=== PATIENT | female | born 1945 | race Two or more races ===

== ENCOUNTER → 2024-07-03 | Outpatient (CLI) | payer OTHER, MEDICAID, SELFPAY ==
[2024-07-03 12:03] LABS: Basophils # (Auto) 0.1 Thou/mm3 (0.0-0.2); Basophils % (Auto) 1 % (0-2.5); Eosinophils # (Auto) 0.3 Thou/mm3 (0.0-0.5); Eosinophils % (Auto) 4 % (0-10); Hematocrit 35.9 % (36.0-46.0); Hemoglobin 10.9 g/dL (12.0-16.0); Immature Granulocytes % (Auto) 0 % (0-0); Immature Granulocytes Auto 0.02 Thou/mm3 (0.00-0.00); Lymphocytes # (Auto) 1.3 Thou/mm3 (1.0-4.8); Lymphocytes % (Auto) 18 % (10-50); Mean Corpuscular HGB Conc 30.4 g/dl (31.0-37.0); Mean Corpuscular Hemoglobin 25.2 pg (25.0-35.0); Mean Corpuscular Volume 83 fL (80-100); Monocytes # (Auto) 0.5 Thou/mm3 (0.0-0.8); Monocytes % (Auto) 7 % (0-12); Neutrophils # (Auto) 5.3 Thou/mm3 (1.8-7.7); Neutrophils % (Auto) 70 % (37-80); Nucleated Red Blood Cell % 0 /100 WBC (0); Platelet Count 429 Thou/mm3 (140-440); RDW Standard Deviation 46.6 fL (36.4-46.3); Red Blood Count 4.32 Miln/mm3 (4.00-5.20); White Blood Count 7.6 Thou/mm3 (3.6-11.0)
[2024-07-03 12:17] LABS: Glucose Estimated Average 134 mg/dL (80-131); Hemoglobin A1C 6.3 % Hgb (4.8-6.0)
[2024-07-03 12:30] LABS: Alanine Aminotransferase 16 U/L (10-49); Albumin, Serum 5.2 gm/dL (3.4-4.8); Albumin/Globulin Ratio 2.4 (1.2-2.2); Alkaline Phosphatase 101 U/L (46-116); Anion Gap 10 (7-16); Aspartate Amino Transferase 17 U/L (0-34); BUN/Creatinine Ratio 17 Ratio (12-20); Bilirubin,Total 0.4 mg/dL (0.3-1.2); Blood Urea Nitrogen 25 mg/dL (9-23); Calcium 10.1 mg/dL (8.3-10.6); Calcium (Corrected) 10.1 mg/dL (8.5-10.1); Carbon Dioxide 27.3 mMol/L (20.0-31.0); Chloride 100 mMol/L (98-107); Cholesterol 140 mg/dL (132-200); Creatinine (Component) 1.5 mg/dL (0.6-1.3); Globulin 2.2 gm/dL (2.3-3.5); Glucose 135 mg/dL (74-106); HDL Cholesterol 46 mg/dL (40-60); LDL Cholesterol,Calculated 66 mg/dL (0-130); Osmolality,Calculated 280 (275-295); Potassium 4.3 mMol/L (3.4-5.1); Sodium 137 mMol/L (136-145); Thyroid Stimulating Hormone 2.23 uIU/mL (0.55-4.78); Total Protein 7.4 gm/dL (5.7-8.2); Triglycerides 142 mg/dL (30-150); eGFR 35 See Note
[2024-07-03 13:47] LABS: Creatinine MALB Rnd Ur 229 mg/dL (30-125); Microalbumin Creat Ratio 42 mg/gCrea (<30); Microalbumin, Random Urine 96 mg/L (0-300)
== END | disposition home or self-care (01) ==
LOC: COPL 11:35
PROVIDERS: PCP Family Medicine; Referring Provider Family Medicine; Visit Provider Family Medicine
DX: E11.65 Type 2 diabetes mellitus with hyperglycemia (principal)
CPT/HCPCS: 36415; 80053; 80061; 82043; 82570; 83036; 84443; 85025

== ENCOUNTER 2024-08-24 16:50 | Emergency (ER) | payer MEDICARE, MEDICAID, SELFPAY ==
[2024-08-24] VITALS (7 sets, daily range): BP systolic 117–228; BP diastolic 55–82; PULSE 62–73; RESP 18; TEMP 36.7–36.9; O2SAT 97–98; BMI 27.2
--- NOTE | 2024-08-24 17:32 | XR_ITS ---
Examination: PA chest single view TECHNIQUE: Upright PA chest single view Exam date and time: August 24, 2024 1740 hours INDICATIONS: Chest pain today. FINDINGS: Normal heart size. CABG. No pneumonia or pulmonary edema The osseous structures are intact IMPRESSION: No pneumonia or pulmonary edema
--- NOTE | 2024-08-24 17:32 | EKG_ITS ---
[facility] Test Date: 2024-08-24 Pat Name: MEJIA PERALTA Department: Room: - Gender: Female [employer]: : 1945 Requested By: Shirlene Mclain Order Number: [id number] Reading MD: Shirlene Mclain Measurements Intervals [place] Rate: 62 P: 6 SD: 167 QRS: 61 QRSD: 83 T: 29 QT: 431 QTc: 439 Interpretive Statements SINUS RHYTHM NONSPECIFIC T-WAVE ABNORMALITY Compared to ECG 03/09/2019 16:55:13 T-wave abnormality now present /store/S0/[id number]
--- NOTE | 2024-08-24 17:35 | EDNOTE_ITS ---
ED General RME/HPI General Chief complaint: Chest Pain Stated complaint: HIGH BLOOD PRESSURE; PCP SENT Time Seen by Provider: 08/24/24 17:25 Arrival date/time: 08/24/24 16:50 RME / HPI RME / HPI narrative: 79-year-old female patient with significant history of hypertension, CAD, CABG was sent to us by PCP for blood pressure above 200 systolic. Patient is complaining of ringing of ears, denies any headache denies any chest pain. Patient is taking multiple blood pressure medication with good compliance. Patient is ambulatory Related Data Home Medications ?Medication ?Instructions ?Recorded ?Confirmed simvastatin 20 mg tablet (Zocor) 20 mg PO HS #0 tabs 03/11/17 02/10/24 hydralazine 25 mg tablet 25 mg PO BID 11/11/17 02/10/24 levothyroxine 50 mcg tablet 50 mcg PO QDAY 11/11/17 02/10/24 (Synthroid) albuterol sulfate 90 mcg/actuation 2 puff inhalation QID PRN 09/06/18 02/10/24 aerosol inhaler (Ventolin HFA) Shortness Of Breath clopidogrel 75 mg tablet 75 mg PO QDAY 09/06/18 02/10/24 magnesium 250 mg tablet 250 mg PO BID 09/06/18 02/10/24 carvedilol 6.25 mg tablet 6.25 mg PO BID 03/09/19 02/10/24 clonidine HCl 0.1 mg tablet 0.1 mg PO BID 03/09/19 02/10/24 hydrochlorothiazide 25 mg tablet 25 mg PO QDAY 03/09/19 02/10/24 metformin 500 mg tablet 500 mg PO BID 02/09/24 02/10/24 pantoprazole 40 mg tablet,delayed 40 mg PO QDAY 02/09/24 02/10/24 release Allergies Allergy/AdvReac Type Severity Reaction Status Date / Time propoxyphene Allergy Mild DIZZY Verified 08/24/24 16:52 shellfish derived Allergy Unknown Verified 08/24/24 16:52 Review of Systems Review of Systems Narrative Review of Systems: Review of system reviewed and within normal limits except mentioned in HPI ED Exam Narrative Physical exam: VITAL SIGNS: Reviewed. GENERAL APPEARANCE: Alert and interactive, follows commands, no acute distress, HEAD AND FACE: Non-traumatic. ENT: PERRL, pink conjunctivitis, eyelid no trauma, Mucous membrane moist. NECK: Supple, nontender, no nuchal rigidity. CHEST: No tenderness, no crepitus, no paradoxical movement, no retractions. LUNGS: Clear, well ventilated, symmetric, no rales, no wheezing, no ronchi, no stridor, good breath sounds bilaterally. HEART: Regular rate, regular rhythm, no murmur, no gallops. ABDOMEN: Soft, positive bowel sounds, nondistended, no guarding, nontender, no rebound, no masses, RECTAL: Deferred. GENITAL: Deferred. NEUROLOGICAL: Gross motor function intact sensory function intact, Appropriate for age. MUSCULOSKELETAL: low back nontender, full range of motion. EXTREMITIES: Nontender, full range of motion. SKIN: Color pink, dry, no rash, no lacerations, no abrasions, no contusions. LYMPHATICS: Deferred. Course Quality Measures none Orders Category Date Time Status EKG (ED ONLY) *Do not use* NOW Care 08/24/24 17:33 Completed EKG (ED Only) Stat Exams 08/24/24 17:32 Draft XR chest 1V Stat Exams 08/24/24 17:32 Completed B-Type Natriuretic Peptide Stat Lab 08/24/24 17:41 Completed CBC Stat Lab 08/24/24 17:41 Completed Comprehensive Metabolic Panel Stat Lab 08/24/24 17:41 Completed Partial Thromboplastin Time Stat Lab 08/24/24 17:41 Completed Troponin I Stat Lab 08/24/24 17:41 Completed Urinalysis, C/S if Indicated Stat Lab 08/24/24 18:19 Completed NIFEdipine [Procardia] Med 08/24/24 19:27 Discontinued 20 mg PO X1 ONE hydrALAZINE HCL [Apresoline] Med 08/24/24 17:33 Discontinued 50 mg PO X1 ONE Vital Signs Vital signs: Vital Signs Temperature 98.5 F 08/24/24 17:12 Pulse Rate 63 08/24/24 17:12 Respiratory Rate 18 08/24/24 17:12 Blood Pressure 225/82 H 08/24/24 17:12 Pulse Oximetry (%) 98 08/24/24 17:12 Oxygen Delivery Method Room Air 08/24/24 17:12 [facility] Patient data External records reviewed:: None Clinical information provided by:: patient Social determinants that could affect healthcare access:: none Patient has the following chronic illnesses:: Hypertension, diabetes mellitus How is presenting disease/condition affected by chronic disease/condition?: e xacerbated by Evaluation data The following diagnostics were reviewed and interpreted by me:: lab results, radiology exam(s) and EKG tracing(s) Lab and/or radiology exams considered but not ordered:: None Interpretation Summary: EKG as interpreted by me showed normal sinus rhythm, ventricular rate of 62 bpm, no ST segment elevation depression noted. I personally reviewed and interpreted the x-ray of this patient. There is no acute abnormalities found, no infiltrates no pneumothorax no hemothorax normal chest x-ray. Review of other structures was without significant abnormal findings also. I additionally reviewed the radiologist report and agree with the interpretation. Patient's cardiac workup all came back unremarkable. The rest of the labs normal. Medications Medications considered but not ordered:: None Medication administrations:: Medication Administration History Discontinued Medications Hydralazine HCl (Hydralazine Hcl 25 Mg Tablet) 50 mg PO X1 ONE Stop: 08/24/24 17:34 Last Admin: 08/24/24 18:17 Dose: 50 mg Documented By: BOLIVAR Nifedipine (Nifedipine 10 Mg Capsule) 20 mg PO X1 ONE Stop: 08/24/24 19:28 Last Admin: 08/24/24 20:03 Dose: 20 mg Documented By: CVL Stable for discharge Consultations Consultation(s) initiated? (list below): No Diagnosis Differential Diagnosis ED Complaint MDM: Hypertensive urgency, hypertensive emergency, poor medication compliance Most likely diagnosis given after review of the tests above:: Hypertensive urgency Admission Indicated Admission indicated?: not indicated Explain why admission is indicated or not indicated:: Stable Admission Request Was there a request for admission?: No Disposition Plan Disposition Plan: Discharge Discharge Attestation Discharge Attestation: The patient and all family members were given an opportunity to ask questions and understood the discharge instructions. Discharge instructions specifically effects, indications for sooner follow up or return to the emergency department, and the expected course of current diagnosis. Patient condition: Stable Medical Decision Making MDM Narrative MDM Narrative: 79-year-old female patient with significant history of hypertension, CAD, CABG was sent to us by PCP for blood pressure above 200 systolic. Patient is complaining of ringing of ears, denies any headache denies any chest pain. Patient is taking multiple blood pressure medication with good compliance. Patient is ambulatory Patient's cardiac workup all came back normal. Patient was given initially hydralazine, for blood pressure about 200, after 1 hour recheck still above 200. I added Procardia, and prior to discharge patient blood pressure back to normal 130/57. Patient is denying any complaints. Patient is ambulatory. Was advised to follow-up with PCP in the morning. Patient appears nontoxic and hemodynamically stable. Patient discharged home and instructed to follow-up with primary care provider in 24 to 48 hours. Instructed to return to the emergency department immediately if worsening of symptoms Differential Diagnosis Differential Diagnosis: Hypertensive urgency, hypertensive emergency, poor medication compliance Lab Data 08/24/24 17:41 08/24/24 17:41 Labs: Lab Results 08/24/24 08/24/24 Range/Units 17:41 18:19 WBC 8.9 (3.6-11.0) Thou/mm3 RBC 4.15 (4.00-5.20) Miln/mm3 Hgb 10.2 L (12.0-16.0) g/dL Hct 33.4 L (36.0-46.0) % MCV 81 (80-100) fL MCH 24.6 L (25.0-35.0) pg MCHC 30.5 L (31.0-37.0) g/dl RDW Std Deviation 46.8 H (36.4-46.3) fL Plt Count 386 (140-440) Thou/mm3 Neut % (Auto) 69 (37-80) % Lymph % (Auto) 18 (10-50) % [place] % (Auto) 8 (0-12) % Eos % (Auto) 4 (0-10) % Baso % (Auto) 1 (0-2.5) % Neut # (Auto) 6.1 (1.8-7.7) Thou/mm3 Lymph # (Auto) 1.6 (1.0-4.8) Thou/mm3 [place] # (Auto) 0.7 (0.0-0.8) Thou/mm3 Eos # (Auto) 0.4 (0.0-0.5) Thou/mm3 Baso # (Auto) 0.1 (0.0-0.2) Thou/mm3 Immature Gran # (Auto) 0.03 H (0.00-0.00) Thou/mm3 Absolute Nucleated RBC 0.00 (0.00-0.00) Thou/mm3 Immature Gran % 0 (0-0) % Nucleated RBC % 0 (0) /100 WBC APTT 26.4 (22.0-36.0) Seconds Sodium 136 (136-145) mMol/L Potassium 4.0 (3.4-5.1) mMol/L Chloride 100 (98-107) mMol/L Carbon Dioxide 24.7 (20.0-31.0) mMol/L Anion Gap 11 (7-16) BUN 23 (9-23) mg/dL Creatinine 1.4 H (0.6-1.3) mg/dL Estim Creat Clear Calc 29.4 L (>60) mL/min eGFR 38 L (60 - ) See Note BUN/Creatinine Ratio 16 (12-20) Ratio Glucose 125 H (74-106) mg/dL Calculated Osmolality 276 (275-295) Calcium 10.4 (8.3-10.6) mg/dL Corrected Calcium 10.4 H (8.5-10.1) mg/dL Total Bilirubin 0.4 (0.3-1.2) mg/dL AST 19 (0-34) U/L ALT 15 (10-49) U/L Alkaline Phosphatase 101 (46-116) U/L Troponin I < 0.020 (0.0-0.045) ng/mL B-Natriuretic Peptide 44 (0-100) pg/mL Total Protein 8.2 (5.7-8.2) gm/dL Albumin 5.3 H (3.4-4.8) gm/dL Globulin 2.9 (2.3-3.5) gm/dL Albumin/Globulin Ratio 1.8 (1.2-2.2) Ur Collection Type Clean Catch Urine Color Colorless A (Lt Yel-Yel) Urine Clarity Clear (Clear/Hazy) Urine pH 6.5 (5.0-7.0) Ur Specific [place] 1.009 (1.001-1.035) Urine Protein Trace (Neg - Trace) Urine Glucose (UA) 3+ A (Negative) Urine Ketones Negative (Negative) Urine Blood Negative (Negative) Urine Nitrite Negative (Negative) Urine Bilirubin Negative (Negative) Urine Urobilinogen (Auto) Negative (0.0-1.0) mg/dL Ur Leukocyte Esterase Negative (Negative) Urine RBC 1 (0-3) /hpf Urine WBC < 1 (0-5) /hpf Ur Squamous Epith Cells 2 (0-5) /hpf Urine Bacteria None (None) Ur Culture Indicated? Not Indicated Discharge Plan Plan Patient Disposition: HOME (Self Care) Disposition Comment: stable Prescriptions/Referrals Prescriptions/Med Rec: No Action simvastatin [Zocor] 20 MG tablet 20 mg PO HS Qty: 0 clopidogrel 75 mg Tablet 75 mg PO QDAY magnesium 250 mg Tablet 250 mg PO BID albuterol sulfate [Ventolin HFA] 90 mcg/actuation Hfa Aerosol Inhaler 2 puff INHALATION QID PRN (Reason: Shortness Of Breath) clonidine HCl 0.1 mg Tablet 0.1 mg PO BID carvedilol 6.25 mg Tablet 6.25 mg PO BID hydrochlorothiazide 25 mg Tablet 25 mg PO QDAY hydralazine 25 mg Tablet 25 mg PO BID levothyroxine [Synthroid] 50 mcg Tablet 50 mcg PO QDAY metformin 500 mg tablet 500 mg PO BID Patient Comments: TAKE 1 TABLET BY MOUTH TWICE DAILY WITH MORNING AND EVENING MEALS pantoprazole 40 mg tablet,delayed release (DR/EC) 40 mg PO QDAY Patient Comments: TAKE 1 TABLET BY MOUTH DAILY Referrals: Vielka Wright MD [Primary Care Provider] - In 1 week Problem List Clinical Impression: Hypertensive urgency Patient/Caregiver Discharge Instructions Discharge Activity: activity as tolerated Education Materials: ED Hypertension, Established Additional Instructions: Thank you for the opportunity for serving you today. You are stable for discharged . You are advised to: Follow-up with your PCP in the morning Return to ED for worsening of symptoms Increase oral fluids Continue taking your blood pressure medication starting tomorrow morning Print Language: Uzbek Stand Alone Forms: Zoila Award Info., Patient Portal Info Letter PA/EDGE BLACKER Supervising Physician PA/EDGE BLACKER Supervising Physician: MD Korin
[2024-08-24 18:00] LABS: Basophils # (Auto) 0.1 Thou/mm3 (0.0-0.2); Basophils % (Auto) 1 % (0-2.5); Eosinophils # (Auto) 0.4 Thou/mm3 (0.0-0.5); Eosinophils % (Auto) 4 % (0-10); Hematocrit 33.4 % (36.0-46.0); Hemoglobin 10.2 g/dL (12.0-16.0); Immature Granulocytes % (Auto) 0 % (0-0); Immature Granulocytes Auto 0.03 Thou/mm3 (0.00-0.00); Lymphocytes # (Auto) 1.6 Thou/mm3 (1.0-4.8); Lymphocytes % (Auto) 18 % (10-50); Mean Corpuscular HGB Conc 30.5 g/dl (31.0-37.0); Mean Corpuscular Hemoglobin 24.6 pg (25.0-35.0); Mean Corpuscular Volume 81 fL (80-100); Monocytes # (Auto) 0.7 Thou/mm3 (0.0-0.8); Monocytes % (Auto) 8 % (0-12); Neutrophils # (Auto) 6.1 Thou/mm3 (1.8-7.7); Neutrophils % (Auto) 69 % (37-80); Nucleated Red Blood Cell % 0 /100 WBC (0); Platelet Count 386 Thou/mm3 (140-440); RDW Standard Deviation 46.8 fL (36.4-46.3); Red Blood Count 4.15 Miln/mm3 (4.00-5.20); White Blood Count 8.9 Thou/mm3 (3.6-11.0)
[2024-08-24] MEDS: hydrALAZINE HCL 25 MG TABLET 50 MG PO (18:17)
[2024-08-24 18:18] LABS: Partial Thromboplastin Time 26.4 Seconds (22.0-36.0)
[2024-08-24 18:22] LABS: B-Type Natriuretic Peptide 44 pg/mL (0-100)
[2024-08-24 18:24] LABS: Alanine Aminotransferase 15 U/L (10-49); Albumin, Serum 5.3 gm/dL (3.4-4.8); Albumin/Globulin Ratio 1.8 (1.2-2.2); Alkaline Phosphatase 101 U/L (46-116); Anion Gap 11 (7-16); Aspartate Amino Transferase 19 U/L (0-34); BUN/Creatinine Ratio 16 Ratio (12-20); Bilirubin,Total 0.4 mg/dL (0.3-1.2); Blood Urea Nitrogen 23 mg/dL (9-23); Calcium 10.4 mg/dL (8.3-10.6); Calcium (Corrected) 10.4 mg/dL (8.5-10.1); Carbon Dioxide 24.7 mMol/L (20.0-31.0); Chloride 100 mMol/L (98-107); Creatinine (Component) 1.4 mg/dL (0.6-1.3); Estimated Creatinine Clearance 29.4 mL/min (>60); Globulin 2.9 gm/dL (2.3-3.5); Glucose 125 mg/dL (74-106); Osmolality,Calculated 276 (275-295); Sodium 136 mMol/L (136-145); Total Protein 8.2 gm/dL (5.7-8.2); Troponin I < 0.020 ng/mL (0.0-0.045); eGFR 38 See Note
[2024-08-24 18:32] LABS: Collection Type, Urine Clean Catch
[2024-08-24 18:50] LABS: Bilirubin,Urine Negative (Negative); Blood,Urine Negative (Negative); Clarity,Urine Clear (Clear/Hazy); Color,Urine Colorless (Lt Yel-Yel); Culture Indicated,Urine Not Indicated; Glucose, Urine 3+ (Negative); Ketones,Urine Negative (Negative); Leukocyte Esterase,Urine Negative (Negative); Nitrite,Urine Negative (Negative); PH,Urine 6.5 (5.0-7.0); Protein,Urine Trace (Neg - Trace); RBC,Urine 1 /hpf (0-3); Specific Gravity,Urine 1.009 (1.001-1.035); Squamous Epithelial Cell,Urine 2 /hpf (0-5); Urobilinogen,Urine Negative mg/dL (0.0-1.0); WBC,Urine < 1 /hpf (0-5)
[2024-08-24] MEDS: NIFEdipine 10 MG CAPSULE 20 MG PO (20:03)
== END 2024-08-24 21:12 | disposition home or self-care (01) ==
PROVIDERS: Nurse Practitioner Family; Emergency Provider Emergency Medicine; PCP Internal Medicine
DX: I16.0 Hypertensive urgency (principal); R94.31 Abnormal electrocardiogram [ECG] [EKG]; I10 Essential (primary) hypertension; I25.10 Atherosclerotic heart disease of native coronary artery without angina pectoris; Z95.1 Presence of aortocoronary bypass graft
CPT/HCPCS: 36415; 71045; 80053; 81001; 83880; 84484; 85025; 85730; 93005; 99283; A9270

== ENCOUNTER → 2025-01-22 | Outpatient (CLI) | payer MEDICARE, MEDICAID, SELFPAY ==
--- NOTE | 2025-01-22 16:40 | XR_ITS ---
Examination: Abdomen AP single view Technique: AP portable supine abdomen, single view Exam date and time: January 22, 2025 1643 hours INDICATIONS: Flank pain months, history kidney stones FINDINGS: 5 mm calculus overlying the left kidney Calcification in the right pelvis measuring 7 mm which appears to be medial to the normal course of the right ureter but clinical correlation advised IMPRESSION: 5 mm left renal calculus
== END | disposition home or self-care (01) ==
PROVIDERS: PCP Internal Medicine; Referring Provider Surgery; Visit Provider Surgery
DX: N20.0 Calculus of kidney (principal)
CPT/HCPCS: 74018

== ENCOUNTER 2025-05-22 17:26 | Observation (INO) | payer MEDICARE, SELFPAY ==
--- NOTE | 2025-05-17 10:56 | EKG_ITS ---
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
[2025-05-17 11:11] VITALS: BMI 27.3
[2025-05-17 11:51] LABS: Collection Type, Urine Clean Catch
[2025-05-17 12:09] LABS: Basophils # (Auto) 0.1 Thou/mm3 (0.0-0.2); Basophils % (Auto) 1 % (0-2.5); Eosinophils # (Auto) 0.2 Thou/mm3 (0.0-0.5); Eosinophils % (Auto) 3 % (0-10); Hematocrit 35.3 % (36.0-46.0); Hemoglobin 10.7 g/dL (12.0-16.0); Immature Granulocytes Auto 0.01 Thou/mm3 (0.00-0.00); Lymphocytes # (Auto) 2.2 Thou/mm3 (1.0-4.8); Lymphocytes % (Auto) 28 % (10-50); Mean Corpuscular HGB Conc 30.3 g/dl (31.0-37.0); Mean Corpuscular Hemoglobin 24.8 pg (25.0-35.0); Mean Corpuscular Volume 82 fL (80-100); Monocytes # (Auto) 0.5 Thou/mm3 (0.0-0.8); Monocytes % (Auto) 6 % (0-12); Neutrophils # (Auto) 4.7 Thou/mm3 (1.8-7.7); Neutrophils % (Auto) 62 % (37-80); Nucleated Red Blood Cell # 0.00 Thou/mm3 (0.00-0.00); Nucleated Red Blood Cell % 0 /100 WBC (0); Platelet Count 431 Thou/mm3 (140-440); RDW Standard Deviation 47.6 fL (36.4-46.3); Red Blood Count 4.32 Miln/mm3 (4.00-5.20); White Blood Count 7.7 Thou/mm3 (3.6-11.0)
[2025-05-17 12:20] LABS: Alanine Aminotransferase 15 U/L (10-49); Albumin, Serum 4.6 gm/dL (3.4-4.8); Albumin/Globulin Ratio 1.7 (1.2-2.2); Alkaline Phosphatase 116 U/L (46-116); Anion Gap 11 (7-16); Aspartate Amino Transferase 19 U/L (0-34); BUN/Creatinine Ratio 13 Ratio (12-20); Bilirubin,Total 0.4 mg/dL (0.3-1.2); Blood Urea Nitrogen 14 mg/dL (9-23); Calcium 9.5 mg/dL (8.3-10.6); Calcium (Corrected) 9.5 mg/dL (8.5-10.1); Carbon Dioxide 28.1 mMol/L (20.0-31.0); Chloride 100 mMol/L (98-107); Creatinine (Component) 1.1 mg/dL (0.6-1.3); Estimated Creatinine Clearance 38.2 mL/min (>60); Globulin 2.7 gm/dL (2.3-3.5); Glucose 155 mg/dL (74-106); Osmolality,Calculated 281 (275-295); Potassium 3.9 mMol/L (3.4-5.1); Sodium 139 mMol/L (136-145); Total Protein 7.3 gm/dL (5.7-8.2); eGFR 51 See Note
[2025-05-17 12:22] LABS: Bilirubin,Urine Negative (Negative); Blood,Urine Negative (Negative); Clarity,Urine Clear (Clear/Hazy); Color,Urine Lt-Yellow (Lt Yel-Yel); Glucose, Urine 4+ (Negative); Ketones,Urine Negative (Negative); Leukocyte Esterase,Urine Negative (Negative); Nitrite,Urine Negative (Negative); PH,Urine 6.5 (5.0-7.0); Protein,Urine Negative (Neg - Trace); RBC,Urine 1 /hpf (0-3); Specific Gravity,Urine 1.019 (1.001-1.035); Squamous Epithelial Cell,Urine 2 /hpf (0-5); Urobilinogen,Urine Negative mg/dL (0.0-1.0); WBC,Urine < 1 /hpf (0-5)
--- NOTE | 2025-05-17 14:48 | ESHP_ITS ---
RE: MEJIA PERALTA : 1945 DATE OF ADMISSION: 05/17/2025 HISTORY OF PRESENT ILLNESS: Patient is a 79-year-old female with history of gross urinary stress incontinence. She leaks urine when she coughs, laughs, sneeze. She has a history of urinary calculi. PAST MEDICAL HISTORY: She has history of diabetes mellitus and history of hypertension. She has 2 kids. PAST SURGICAL HISTORY: Coronary artery bypass graft. ALLERGIES: SHE IS ALLERGIC TO SHELLFISH. MEDICATIONS: 1. Jardiance. 2. Clonidine. 3. Lipitor. 4. Allopurinol. 5. Thyroid medication. 6. Plavix. 7. Hydralazine. 8. Norvasc. 9. Lisinopril. PHYSICAL EXAMINATION: HEENT: Normal. Neck: Supple. Lungs: Clear. Cardiovascular: Heart sounds are normal. Abdomen: Soft without any organomegaly. No guarding. No rigidity. Extremities: Normal. Pelvic: A grade 2 urethrocele. Patient had cystoscopy which revealed low residual urine, normal capacity bladder, no intravesical stones or tumors. Patient had gross urinary stress incontinence with positive Emnauel's test. There are no uninhibited bladder contractions when bladder was filled. PLAN: Patient was given treatment options. She has decided to have surgery. She is now scheduled to have bladder neck suspension, cystoscopy, urethrolysis with Lynx vaginal sling procedure. Planned procedure, risks and complications have been discussed with the patient. Patient has understood them and agreed to proceed. Patient is supposed to stop her Plavix 1 week prior to the surgery. DT: 14:23:17 TT: 14:46:00 Ref: [id number] - TID: [id number]
--- NOTE | 2025-05-21 15:47 | SUR.PREOP ---
Pt notified to come in at 1000 tomorrow, Cardiac records reviewed with Dr Ramirez.
[2025-05-22] VITALS (18 sets, daily range): BP systolic 116–165; BP diastolic 50–89; PULSE 61–85; RESP 13–20; TEMP 36.6–36.8; O2SAT 94–100; BMI 25.8; BMI 27.1
--- NOTE | 2025-05-22 09:50 | CHAP ---
Spoke with patient giving encouragement. Patient did not want prayer.
--- NOTE | 2025-05-22 12:19 | SUR.PHASEI ---
pt received from OR in recovery bay 2. pt asleep but responds to voice, breathing unlabored on nc 2l .v/s stable. pt dressing to vaginal area cdi. report received from Sánchez DELACRUZ and Florence KNAPP.
[2025-05-22] MEDS: RINGERS LACTATED 1000 ML 1,000 ML 100 ML IV ×2 (13:05→23:38)
--- NOTE | 2025-05-22 14:11 | ESOP_ITS ---
RE: MEJIA PERALTA : 1945 DATE OF OPERATION: 05/22/2025 PREOPERATIVE DIAGNOSIS: Gross urinary stress incontinence. POSTOPERATIVE DIAGNOSIS: Gross urinary stress incontinence. PROCEDURE PERFORMED: Bladder neck suspension, cystoscopy, urethrolysis with Lynx vaginal sling procedure. ANESTHESIA: General by Dr. Ramirez. INDICATION: The patient is an 80-year-old female with history of gross urinary stress incontinence. She loses urine on any kind of stress of sneezing, coughing, laughing. She was referred to me. She underwent cystoscopy, which revealed a low residual urine, normal capacity bladder, no uninhibited bladder contractions when the bladder was filled slowly, gross urinary stress incontinence, positive Emanuel's test. There were no intravesical stones or tumors. The patient was given treatment options. She has decided to have surgery and she is now scheduled to have bladder neck suspension, cystoscopy, urethrolysis with Lynx vaginal sling procedure. Planned procedure, risks, and complications have been discussed with the patient. The patient has understood them and agreed to proceed. DESCRIPTION OF PROCEDURE: After the patient was brought to the operating table under adequate general anesthesia given by Dr. Ramirez, she was placed in dorsal lithotomy position. A 16-Tajik Cheema catheter was inserted into the bladder. After the thorough prep and draping, a weighted vaginal speculum was inserted into the vagina. Injection of local anesthetic was done underneath the vaginal mucosa on the anterior part and then a small vertical incision was then made between the mid urethra towards the bladder neck over the mucosa and the dissection was then carried out from both sides underneath the vaginal mucosa for about 2 cm. Dissection was then carried out. Deep endopelvic fascia was seen and was entered on both sides. Urethrolysis was done. Retropubic space was defined. At this point, I diverted the operation to the suprapubic area. Two transverse incisions were made in the suprapubic area about 3 inches from midline and from this area, I passed Lynx needles down into the vaginal wound under finger control behind the pubic bone from that suprapubic incision. After that was done, I removed the Cheema catheter and proceeded with a cystoscopy. There was no evidence of any entry of the needle inside the bladder and the bladder appeared to be intact. The cystoscope was then removed and Cheema catheter was reinserted. At this point, I attached the sling to the needles and the sling was pulled up. Excess of the sling and a sleeve of the sling were removed. Excessive tension on the sling was avoided. Anterior vaginal wall incision was then closed with a continuous sutures of 2-0 chromic catgut. Suprapubic wounds were then closed with interrupted sutures of 3-0 chromic catgut. Kerlix soaked in saline solution was used as a vaginal packing. Sterile dressing was then applied. The patient was then transferred to the recovery room in a satisfactory condition having tolerated the entire procedure well. Sponge count and needle count at the end of the procedure was found to be correct. Estimated blood loss 25 mL. DT: 12:38:39 TT: 14:09:00 Ref: [id number] - TID: [id number]
--- NOTE | 2025-05-22 16:44 | SUR.PHASEI ---
pt awake and alert, breathing unlabored on room air. v/s stable. pt dressing to vaginal area cdi, fu cath in place. report called to Ghada Bennett. pt will be transferred to room at this time.
--- NOTE | 2025-05-22 20:55 | PC.NURSE ---
Advised pt to have family member bring the jardiance and rybelsus meds in AM, this med is non formulary and we dont carry this meds in the hospital to be given in AM for her diabetes.
[2025-05-22] MEDS: HYDROcodone/APAP 5/325 TABLET 1 TAB PO (21:00)
--- NOTE | 2025-05-22 21:00 | PC.NURSE ---
Pt said she had some discomfort on the surgery site, offered [place] for pain and pt agreed to take norco for her pain. Pt pain scale is 5/10.
--- NOTE | 2025-05-22 21:30 | PC.NURSE ---
RT Cline made aware that pt needs incentive Spirometry.
[2025-05-23] VITALS (8 sets, daily range): BP systolic 130–151; BP diastolic 58–86; PULSE 64–70; RESP 16–18; TEMP 36.3–37; O2SAT 95–97
--- NOTE | 2025-05-23 03:38 | PC.NURSE ---
Pt is asleep at this time.
[2025-05-23] MEDS: LEVOTHYROXINE SODIUM 25 MCG TABLET 50 MCG PO (05:05)
[2025-05-23] MEDS: HYDROcodone/APAP 5/325 TABLET 1 TAB PO (05:07)
[2025-05-23 05:56] LABS: Basophils # (Auto) 0.0 Thou/mm3 (0.0-0.2); Basophils % (Auto) 0 % (0-2.5); Eosinophils # (Auto) 0.0 Thou/mm3 (0.0-0.5); Eosinophils % (Auto) 0 % (0-10); Hematocrit 32.7 % (36.0-46.0); Hemoglobin 10.3 g/dL (12.0-16.0); Immature Granulocytes Auto 0.04 Thou/mm3 (0.00-0.00); Lymphocytes # (Auto) 1.3 Thou/mm3 (1.0-4.8); Lymphocytes % (Auto) 10 % (10-50); Mean Corpuscular HGB Conc 31.5 g/dl (31.0-37.0); Mean Corpuscular Hemoglobin 24.8 pg (25.0-35.0); Mean Corpuscular Volume 79 fL (80-100); Monocytes # (Auto) 0.5 Thou/mm3 (0.0-0.8); Monocytes % (Auto) 4 % (0-12); Neutrophils # (Auto) 10.8 Thou/mm3 (1.8-7.7); Neutrophils % (Auto) 85 % (37-80); Nucleated Red Blood Cell # 0.00 Thou/mm3 (0.00-0.00); Nucleated Red Blood Cell % 0 /100 WBC (0); Platelet Count 356 Thou/mm3 (140-440); RDW Standard Deviation 44.4 fL (36.4-46.3); Red Blood Count 4.15 Miln/mm3 (4.00-5.20); White Blood Count 12.6 Thou/mm3 (3.6-11.0)
[2025-05-23 06:44] LABS: Albumin, Serum 4.4 gm/dL (3.4-4.8); Anion Gap 12 (7-16); BUN/Creatinine Ratio 16 Ratio (12-20); Blood Urea Nitrogen 18 mg/dL (9-23); Calcium 8.9 mg/dL (8.3-10.6); Calcium (Corrected) 8.9 mg/dL (8.5-10.1); Carbon Dioxide 25.4 mMol/L (20.0-31.0); Chloride 101 mMol/L (98-107); Creatinine (Component) 1.1 mg/dL (0.6-1.3); Estimated Creatinine Clearance 36.6 mL/min (>60); Glucose 153 mg/dL (74-106); Osmolality,Calculated 280 (275-295); Phosphorous 3.8 mg/dL (2.4-5.1); Potassium 3.4 mMol/L (3.4-5.1); Sodium 138 mMol/L (136-145); eGFR 51 See Note
[2025-05-23] MEDS: ATORVASTATIN CALCIUM 20 MG TABLET 40 MG PO (10:06)
[2025-05-23] MEDS: LEVOFLOXACIN/D5W 500 MG IVPB 500 MG/100 ML BAG 100 MG IV (10:06)
[2025-05-23] MEDS: PANTOPRAZOLE 40 MG TABLET PO (10:08)
[2025-05-23] MEDS: RINGERS LACTATED 1000 ML 1,000 ML 100 ML IV (10:27)
--- NOTE | 2025-05-23 13:27 | PD.ANESPROG ---
Documentation for date of: 05/23/25 POST ANESTHESIA NOTE: Patient had GETA for urologic procedure yesterday. I saw her briefly earlier today in 383 around 1 pm and she was alert and calm, seated up in bed, smiling, NAD, denied any problems from anesthesia, her visitors at bedside. Joshua Ramirez MD Anesthesia Progress Note Progress Note Most recent Vital Signs: Last Vital Signs Temp 97.6 F 05/23/25 12:00 Pulse 70 05/23/25 12:00 Resp 17 05/23/25 12:00 BP 136/86 H 05/23/25 12:00 Pulse Ox 95 05/23/25 12:00 O2 Del Method Room Air 05/23/25 12:00 O2 Flow Rate 2 05/23/25 04:00
--- NOTE | 2025-05-23 14:11 | PC.PT ---
PT eval only. Patient is xI with bed mobility, transfers, and ambulation with no AD. Patient is safe to ambulate to the bathroom and in the halls with no AD and no staff. RN made aware.
[2025-05-23] MEDS: ONDANSETRON INJ 2 MG/ML INJ 2 ML 4 MG IVP (17:20)
--- NOTE | 2025-05-23 20:00 | PC.NURSE ---
Called MD Meade regarding discharging pt, per pt is okay to be discharge tonight, Disharge instruction given by MD Meade per telephone order.
--- NOTE | 2025-05-24 10:31 | PC.SS ---
Late note 05-23-25: SS met with patient regarding her d/c plan. Pt is alert/oriented. Pt was admitted for Blad [id number]. Pt confirmed demographic and contact information is correct on facesheet. Pt resides with alone. Pt ambulates independently without assistance or DME. Pt is ok with all ADLs. Patient?s pharmacy [facility] choice [facility]. Pt named her dtr, Wendy Pollard medical decision maker if she is unable. SS provided verbal choices for d/c to home or SNF. Patient?s choice is to return home upon d/c. Pt states she is diabetic, has glucometer, and test stips. Pt states she is not on dialysis. Dtr will provide transportation home. Pt states she follows up with PCP 1 month. D/C plan: Return home Next of Kin: Wendy Pollard dtr, phone# [phone] PCP: Dr. Vielka Vinson Address: Correct on facesheet
== END 2025-05-23 20:30 | disposition home or self-care (01) ==
LOC: S3SX 05-23 05:58
PROVIDERS: Anesthesiology; Admitting Provider Surgery; PCP Internal Medicine; Referring Provider Surgery; Visit Provider Surgery
PROC: 0TJB8ZZ Inspection of Bladder, Via Natural or Artificial Opening Endoscopic (ICD-10-PCS; CPT 57288; principal; 2025-05-22 12:00)
DX: N39.3 Stress incontinence (female) (male) (principal)
CPT/HCPCS: 57288; 36415; 80053; 80069; 81001; 85025; 87086; 93005; 93225; 96361; 96374; 97161; A4217; A4649; C1771; G0378; J0131; J1100; J1956; J2371; J2405; J2598; J2704; J3010; J3490; J7120; A9270; J1596; J1805; J7999

== ENCOUNTER → 2025-06-25 | Outpatient (CLI) | payer MEDICARE, MEDICAID, SELFPAY ==
--- NOTE | 2025-06-25 08:45 | XR_ITS ---
Examination: Retroperitoneal ultrasound, complete Technique: Multiple high resolution grayscale images of the retroperitoneum obtained, including kidneys and bladder. Exam date and time: June 25, 2025, 0912 hours INDICATIONS: Renal insufficiency on laboratory examination May 23, 2025, frequent urination 3 years FINDINGS: Right kidney 9.8 cm renal cortex 1.5 cm Left kidney 9.3 cm renal cortex 1.7 cm Mild renal scar formation No hydronephrosis or renal calculi No bladder mass or bladder calculi Bladder prevoid volume 163.6 cc postvoid volume 7 cc IMPRESSION: Small kidneys with bilateral renal cortical thinning Mild bilateral renal scar formation No hydronephrosis
== END | disposition home or self-care (01) ==
PROVIDERS: PCP Internal Medicine; Referring Provider Internal Medicine; Visit Provider Internal Medicine
DX: N28.89 Other specified disorders of kidney and ureter (principal); N27.1 Small kidney, bilateral; N18.32 Chronic kidney disease, stage 3b
CPT/HCPCS: 76770